=== PATIENT | male | born 1960 | race Caucasian/White ===

== ENCOUNTER 2022-01-28 05:55 | Day surgery (SDC) | payer BC ==
[2022-01-28] MEDS ORDERED: Lactated Ringers 1,000 ML IV SCH (06:30)
[2022-01-28 06:42] LABS: ESTIMATED GFR > 60 (>60)
[2022-01-28] MEDS ORDERED: Bupivacaine 0.5% 50 ML MDV ONE (06:56)
[2022-01-28] MEDS ORDERED: Nozin Nasal Sanitizer NASBOTH SCH (07:00)
[2022-01-28] MEDS ORDERED: ceFAZolin 2 GM in Premix Bag 1 BAG IV ONE (07:30)
[2022-01-28] MEDS ORDERED: Propofol 200 MG/20 ML SDV ONE ×2 (07:33→08:24)
[2022-01-28] MEDS ORDERED: fentaNYL 100 MCG/2 ML SDV ONE ×2 (07:34→08:13)
[2022-01-28] MEDS ORDERED: Midazolam 1 MG/ML 2 ML SDV ONE ×3 (07:34→08:14)
[2022-01-28] MEDS ORDERED: Lactated Ringers 1,000 ML ONE (08:45)
[2022-01-28] MEDS ORDERED: HYDROmorphone 0.5 MG/0.5 ML Syringe IVPUSH PRN (09:13)
[2022-01-28] MEDS ORDERED: oxyCODONE 5 MG Tab PO PRN (09:13)
[2022-01-28] MEDS ORDERED: Ondansetron 4 MG/2 ML SDV IVPUSH PRN (09:13)
[2022-01-28] MEDS: Acetaminophen 500 MG Tab PO SCH ×3 (10:02→21:46)
[2022-01-28] MEDS: Ketorolac 30 MG/ML SDV IVPUSH SCH ×2 (10:06→19:13)
[2022-01-28] MEDS: Sodium Chloride 0.9% 1,000 ML IV SCH ×2 (11:27→20:56)
[2022-01-28] MEDS ORDERED: ceFAZolin 1 GM in Premix Bag 1 BAG IV ONE (14:00)
[2022-01-28] MEDS: oxyCODONE 5 MG Tab PO PRN ×2 (14:07→18:26)
[2022-01-28] MEDS: Docusate Sodium 100 MG Cap PO SCH (20:56)
[2022-01-28] MEDS: Doxycycline 100 MG Cap PO SCH (20:56)
[2022-01-28] MEDS: Nozin Nasal Sanitizer NASBOTH SCH (20:56)
[2022-01-28] MEDS: Allopurinol 100 MG Tab PO SCH (20:56)
[2022-01-29] MEDS: oxyCODONE 5 MG Tab PO PRN ×3 (00:41→12:55)
[2022-01-29] MEDS: traMADol 50 MG Tab PO PRN ×2 (03:44→09:16)
[2022-01-29] MEDS: Acetaminophen 500 MG Tab PO SCH ×2 (04:24→09:11)
[2022-01-29] MEDS: Sodium Chloride 0.9% 1,000 ML IV SCH (05:15)
[2022-01-29] MEDS ORDERED: Celecoxib 200 MG Cap PO SCH (09:00)
[2022-01-29] MEDS ORDERED: Fluticasone NASAL Spray 16 GM Bottle NASBOTH SCH (09:00)
[2022-01-29] MEDS ORDERED: Lisinopril 20 MG Tab PO SCH (09:00)
[2022-01-29] MEDS ORDERED: Enoxaparin 30 MG/0.3 ML Syringe SUBCUT SCH (09:00)
[2022-01-29] MEDS ORDERED: amLODIPine 5 MG Tab PO SCH (09:00)
[2022-01-29] MEDS: Nozin Nasal Sanitizer NASBOTH SCH (09:07)
[2022-01-29] MEDS: Allopurinol 100 MG Tab PO SCH (09:08)
[2022-01-29] MEDS: Docusate Sodium 100 MG Cap PO SCH (09:08)
[2022-01-29] MEDS: Doxycycline 100 MG Cap PO SCH (09:08)
== END 2022-01-29 15:15 | disposition home or self-care (01) ==
LOC: JP.SDS 05:55 → JP.ICU 09:13 → JP.SDS 01-29 15:15
PROVIDERS: ATTEND Specialist
DX: M17.12 Unilateral primary osteoarthritis, left knee (principal); I10 Essential (primary) hypertension; D64.89 Other specified anemias; Z87.891 Personal history of nicotine dependence; S70.261A Insect bite (nonvenomous), right hip, initial encounter; W57.XXXA Bitten or stung by nonvenomous insect and other nonvenomous arthropods, initial encounter; Z79.899 Other long term (current) drug therapy
CPT/HCPCS: 27446; 36415; 73560; 80053; 85027; 93005; 97110; 97116; 97162; 97165; 97535; A9270; C1713; C1776; J0690; J1650; J1885; J2250; J2704; J3010; J3490; J7030; J7120

== ENCOUNTER 2024-05-05 06:34 | Day surgery (SDC) | payer MEDICARE, BC ==
[2024-05-05] MEDS ORDERED: Propofol 200 MG/20 ML SDV ONE ×5 (06:58→08:11)
[2024-05-05] MEDS ORDERED: fentaNYL 50 MCG/ML SDV ONE (06:59)
[2024-05-05] MEDS ORDERED: Midazolam 1 MG/ML 2 ML SDV ONE (06:59)
[2024-05-05] MEDS: Sodium Chloride 0.9% 1,000 ML IV SCH (07:16)
== END 2024-05-05 09:22 | disposition home or self-care (01) ==
LOC: JP.SDS 06:34
PROVIDERS: ATTEND Surgery
DX: Z12.11 Encounter for screening for malignant neoplasm of colon (principal); D12.2 Benign neoplasm of ascending colon; D12.3 Benign neoplasm of transverse colon; D12.4 Benign neoplasm of descending colon; Q43.8 Other specified congenital malformations of intestine; G47.33 Obstructive sleep apnea (adult) (pediatric)
CPT/HCPCS: 00811; 45380; 45385; 88305; J2250; J2704; J3010; J7030